=== PATIENT | male | born 1975 | race African-American/Black ===

== ENCOUNTER 2018-05-24 07:19 | Inpatient (IN) ==
--- NOTE | 2018-05-24 08:04 | EKG Report ---
Test Performed on : 05/24/2018 07:35:05 AM Test Reason : ER Blood Pressure : / mmHG Vent. Rate : 114 BPM Atrial Rate : 114 BPM P-R Int : 140 ms QRS Dur : 090 ms QT Int : 298 ms P-R-T Axes : 079 059 027 degrees QTc Int : 410 ms Sinus tachycardia. Possible Left atrial enlargement Left ventricular hypertrophy Abnormal ECG No previous ECGs available Unconfirmed Result
[2018-05-24 08:26] LABS: BASO# 0.01 X1000 (0.0-0.2); BASO% 0.2 % (0.0-0.8); EOS# 0.02 X1000 (0.0-0.7); EOS% 0.4 % (0.0-10.0); HEMATOCRIT 37.7 % (42.0-52.0); IMM GRAN# 0.02 X1000 (0.0-0.04); IMM GRAN% 0.4 % (0.0-0.5); LYMPH# 0.48 X1000 (1.2-3.4); LYMPH% 8.8 % (20.5-51.1); MCH 30.9 PG (27-31); MCHC 34.5 g/dL (33-37); MCV 89.5 FL (81-99); MONO# 0.06 X1000 (0.11-0.59); MONO% 1.1 % (1.7-9.3); MPV 9.1 FL (7.4-10.4); NEUT# 4.85 X1000 (1.4-6.5); NEUT% 89.1 % (42.2-75.2); PLT 159 X1000 (130-400); RBC 4.21 XMIL (4.7-6.1); RDW 12.9 % (11.5-14.5); WBC 5.44 X1000 (4.8-10.8)
--- NOTE | 2018-05-24 08:26 | Diag Imaging Result Doc PS360 ---
EXAM: CHEST-PORTABLE HISTORY: syncopal episode TECHNIQUE: Chest single view COMPARISON: None. FINDINGS: The lungs are well expanded. The heart is not enlarged. The vessels are not distended. There are no infiltrates. No effusion identified. IMPRESSION: Negative exam. Electronically signed by Amilcar Sims 05/24/2018 8:24 AM
[2018-05-24 08:41] LABS: ALBUMIN 3.8 g/dL (3.5-5.0); CALCIUM 8.7 mg/dL (8.8-10.2); CREATININE 2.1 mg/dL (0.7-1.2); POTASSIUM 3.2 mmol/L (3.5-5.1); TOTAL BILIRUBIN 1.6 mg/dL (0.20-1.00); TOTAL PROTEIN 7.2 g/dL (6.3-8.3)
[2018-05-24] MEDS ORDERED: NS 1,000 ML IV ONE ×3 (08:42→15:10)
--- NOTE | 2018-05-24 08:49 | PROVIDER DOCUMENTATION ---
HPI-Syncope/Dizziness - General Chief Complaint: Syncope Stated Complaint: SYNCOPE Time Seen by Provider: 05/24/18 08:32 Source: patient, family Allergies/Adverse Reactions: Patient Allergies Allergy/AdvReac Type Severity Reaction Status Date / Time No Known Allergies Allergy Verified 05/24/18 08:17 Home Medications: Home Medication List Medication Instructions Recorded Confirmed Last Taken Type Amlodipine Besylate 01/04/18 Unknown History Cyclobenzaprine [Flexeril] 10 mg PO TID #20 tab 01/04/18 Unknown Rx Ibuprofen [Motrin] 800 mg PO Q8H PRN PRN #20 tab 01/04/18 Unknown Rx Losartan/Hctz [Hyzaar 100/12.5 mg 1 each PO DAILY 01/04/18 01/04/18 Unknown History Tab] - History of Present Illness-Syncope/Dizzy Nature of Presenting Problem: HX LARGELY GIVEN BY PT'S MOTHER. PT IS ABLE TO SPEEK BUT MAINLY QUIET. mOM TELLS ME PT FELL IN HIS BEDROOM, WAS DIZZYBUT NO LOC. NO DRUG OR ALCOHOL PER MOTHER, PT DOESNT ANSWER THAT QUESTION. DENIES PAIN , DENIES SOB. TX FOR HTN. DENIES COUGH OR FLU SXS. Recently Seen Here or By Another Healthcare Provider: No Review of Systems - Adult - REVIEW OF SYSTEMS - ADULT Constitutional: reports: no symptoms reported. denies: chills, fever, night sweats Eyes: reports: no symptoms reported. denies: discharge Ears, Nose, Mouth & Throat: reports: no symptoms reported Cardiovascular: reports: no symptoms reported. denies: chest pain Respiratory: reports: no symptoms reported. denies: cough, shortness of breath Gastrointestinal: reports: no symptoms reported. denies: abdominal pain Genitourinary: reports: no symptoms reported Musculoskeletal: reports: no symptoms reported Integumentary: reports: no symptoms reported Neurological: reports: no symptoms reported, dizziness/vertigo. denies: syncope Psychiatric: reports: no symptoms reported Endocrine: reports: no symptoms reported Hematologic/Lymphatic: reports: no symptoms reported Allergic/Immunologic: reports: no symptoms reported All Other Systems: Reviewed and Negative Past History - Adult - PAST MEDICAL HISTORY-ADULT Review of Records: reports: Old Records Reviewed, Nursing Assessment Review, Medications Reviewed, Social history reviewed & non-contributory. Major Childhood Illnesses: reports: denies history Cardiovascular: reports: denies history, HTN Respiratory: reports: denies history Gastrointestinal: reports: denies history Obstetrical/Gynecological: reports: denies history Genitourinary: reports: denies history Musculoskeletal: reports: denies history Neurological: reports: denies history Psychiatric: reports: denies history Endocrine/Immune: reports: denies history Other Conditions: reports: denies history - PRIOR SURGERIES/PROCEDURES Surgical/Procedure History: reports: none - FAMILY HISTORY Family History: reviewed, not pertinent Physical Exam-General - PHYSICAL EXAM-ADULT Initial Vital Signs Reviewed: Yes (TACHY, LOW BP) - CONSTITUTIONAL General Appearance: no apparent distress, other (AWAKE, POORLY RESPONSIVE TO VERBAL) - EYES Eyes: pink conjunctivae - HEAD, EARS, NOSE, MOUTH & THROAT HENMT: moist mucous membranes - NECK Neck: full range of motion, supple - RESPIRATORY Respiratory: lungs clear, normal breath sounds, no respiratory distress, no accessory muscle use. negative: rales, stridor, wheezing, retractions - CARDIOVASCULAR Cardiovascular: regular rate, rhythm, no edema, no gallop, no JVD, no murmur, tachycardia - GASTROINTESTINAL (ABDOMEN) Abdominal Exam: non tender, soft - MUSCULOSKELETAL Extremity: normal range of motion - SKIN Integumentary: normal color, normal turgor, warm/dry - NEUROLOGIC Neurologic: school psychologist II-XII nml as tested, grossly normal, no motor/sensory deficits - PSYCHIATRIC Psych/Mental Status: oriented x 3, depressed affect Progress - PLAN OF CARE/RESULTS Progress/Plan/Lab Results: Vital Signs - 8 hr 05/24/18 07:40 05/24/18 07:45 05/24/18 08:00 Temperature 100.9 F H Pulse Rate 115 H 113 H 112 H Respiratory Rate 30 H 31 H 33 H Blood Pressure 113/71 109/70 103/63 O2 Sat by Pulse Oximetry 93 L 93 L 92 L 05/24/18 08:15 Temperature Pulse Rate 114 H Respiratory Rate 30 H Blood Pressure 93/58 O2 Sat by Pulse Oximetry 94 L Laboratory Results - last 24 hr 05/24/18 05/24/18 05/24/18 08:04 08:04 08:04 WBC 5.44 RBC 4.21 L Hgb 13.0 L Hct 37.7 L MCV 89.5 MCH 30.9 MCHC 34.5 RDW Std Deviation 12.9 Plt Count 159 MPV 9.1 Immature Gran % (Auto) 0.4 Neut % (Auto) 89.1 H Lymph % (Auto) 8.8 L Andrews % (Auto) 1.1 L Eos % (Auto) 0.4 Baso % (Auto) 0.2 Immature Gran # (Auto) 0.02 Neut # (Auto) 4.85 Lymph # (Auto) 0.48 L Andrews # (Auto) 0.06 L Eos # (Auto) 0.02 Baso # (Auto) 0.01 Segmented Neutrophils 85 H Band Neutrophils 2 H Lymphocytes 11 L Monocytes 2 PT 18.6 H INR 1.47 PTT (Actin FS) 35.2 Sodium 140 Potassium 3.2 L Chloride 102 Carbon Dioxide 23 L Anion Gap 15 BUN 23 H Creatinine 2.1 H Estimated GFR/1.73 m2 35 BUN/Creatinine Ratio 11 Glucose 109 H POC Glucose Calculated Osmolality 284 Calcium 8.7 L Total Bilirubin 1.60 H AST 31 ALT 21 Alkaline Phosphatase 117 Creatine Kinase 276 H Creatine Kinase Index 0.4 CK-MB (CK-2) 1.00 Troponin T Total Protein 7.2 Albumin 3.8 Globulin 3.0 Albumin/Globulin Ratio 1.0 Plasma Lactate Urine Source Urine Color Urine Clarity Urine pH Ur Specific [place] Urine Protein Urine Ketones Urine Blood Urine Nitrite Urine Bilirubin Urine Urobilinogen Urine Microscopic RBC Urine WBC Urine Microscopic WBC Urine Bacteria Urine Glucose Urine Opiates Screen Ur Oxycodone Screen Urine Methadone Screen U Propoxyphene Qual Ur Barbituates Screen Ur Tricyclics Screen Ur Phencyclidine Scrn Ur Amphetamines Screen U Methamphetamines Scrn U Benzodiazepines Scrn Urine Cocaine Screen U Cannabinoids Screen Plasma/Serum Ethyl Alc Influenza A (Rapid) Influenza B (Rapid) 05/24/18 05/24/18 05/24/18 08:04 08:04 08:04 WBC RBC Hgb Hct MCV MCH MCHC RDW Std Deviation Plt Count MPV Immature Gran % (Auto) Neut % (Auto) Lymph % (Auto) Andrews % (Auto) Eos % (Auto) Baso % (Auto) Immature Gran # (Auto) Neut # (Auto) Lymph # (Auto) Andrews # (Auto) Eos # (Auto) Baso # (Auto) Segmented Neutrophils Band Neutrophils Lymphocytes Monocytes PT INR PTT (Actin FS) Sodium Potassium Chloride Carbon Dioxide Anion Gap BUN Creatinine Estimated GFR/1.73 m2 BUN/Creatinine Ratio Glucose POC Glucose Calculated Osmolality Calcium Total Bilirubin AST ALT Alkaline Phosphatase Creatine Kinase Creatine Kinase Index CK-MB (CK-2) Troponin T < 0.010 Total Protein Albumin Globulin Albumin/Globulin Ratio Plasma Lactate 3.0 H Urine Source Urine Color Urine Clarity Urine pH Ur Specific [place] Urine Protein Urine Ketones Urine Blood Urine Nitrite Urine Bilirubin Urine Urobilinogen Urine Microscopic RBC Urine WBC Urine Microscopic WBC Urine Bacteria Urine Glucose Urine Opiates Screen Ur Oxycodone Screen Urine Methadone Screen U Propoxyphene Qual Ur Barbituates Screen Ur Tricyclics Screen Ur Phencyclidine Scrn Ur Amphetamines Screen U Methamphetamines Scrn U Benzodiazepines Scrn Urine Cocaine Screen U Cannabinoids Screen Plasma/Serum Ethyl Alc Influenza A (Rapid) Influenza B (Rapid) 05/24/18 05/24/18 05/24/18 08:08 08:26 09:06 WBC RBC Hgb Hct MCV MCH MCHC RDW Std Deviation Plt Count MPV Immature Gran % (Auto) Neut % (Auto) Lymph % (Auto) Andrews % (Auto) Eos % (Auto) Baso % (Auto) Immature Gran # (Auto) Neut # (Auto) Lymph # (Auto) Andrews # (Auto) Eos # (Auto) Baso # (Auto) Segmented Neutrophils Band Neutrophils Lymphocytes Monocytes PT INR PTT (Actin FS) Sodium Potassium Chloride Carbon Dioxide Anion Gap BUN Creatinine Estimated GFR/1.73 m2 BUN/Creatinine Ratio Glucose POC Glucose 116 H Calculated Osmolality Calcium Total Bilirubin AST ALT Alkaline Phosphatase Creatine Kinase Creatine Kinase Index CK-MB (CK-2) Troponin T Total Protein Albumin Globulin Albumin/Globulin Ratio Plasma Lactate Urine Source CATH Urine Color BROWN Urine Clarity VERY CLOUDY A Urine pH 8.0 Ur Specific [place] 1.005 Urine Protein 2+(100 mg/dL) A Urine Ketones 1+(Small) A Urine Blood 4+ Urine Nitrite NEGATIVE Urine Bilirubin NEGATIVE Urine Urobilinogen 8 Urine Microscopic RBC TNTC A Urine WBC 2+ A Urine Microscopic WBC TNTC A Urine Bacteria 4+ Urine Glucose NEGATIVE Urine Opiates Screen Ur Oxycodone Screen Urine Methadone Screen U Propoxyphene Qual Ur Barbituates Screen Ur Tricyclics Screen Ur Phencyclidine Scrn Ur Amphetamines Screen U Methamphetamines Scrn U Benzodiazepines Scrn Urine Cocaine Screen U Cannabinoids Screen Plasma/Serum Ethyl Alc Influenza A (Rapid) NEGATIVE Influenza B (Rapid) NEGATIVE 05/24/18 09:06 WBC RBC Hgb Hct MCV MCH MCHC RDW Std Deviation Plt Count MPV Immature Gran % (Auto) Neut % (Auto) Lymph % (Auto) Andrews % (Auto) Eos % (Auto) Baso % (Auto) Immature Gran # (Auto) Neut # (Auto) Lymph # (Auto) Andrews # (Auto) Eos # (Auto) Baso # (Auto) Segmented Neutrophils Band Neutrophils Lymphocytes Monocytes PT INR PTT (Actin FS) Sodium Potassium Chloride Carbon Dioxide Anion Gap BUN Creatinine Estimated GFR/1.73 m2 BUN/Creatinine Ratio Glucose POC Glucose Calculated Osmolality Calcium Total Bilirubin AST ALT Alkaline Phosphatase Creatine Kinase Creatine Kinase Index CK-MB (CK-2) Troponin T Total Protein Albumin Globulin Albumin/Globulin Ratio Plasma Lactate Urine Source Urine Color Urine Clarity Urine pH Ur Specific [place] Urine Protein Urine Ketones Urine Blood Urine Nitrite Urine Bilirubin Urine Urobilinogen Urine Microscopic RBC Urine WBC Urine Microscopic WBC Urine Bacteria Urine Glucose Urine Opiates Screen NONE DETECTED Ur Oxycodone Screen NONE DETECTED Urine Methadone Screen NONE DETECTED U Propoxyphene Qual NONE DETECTED Ur Barbituates Screen NONE DETECTED Ur Tricyclics Screen NONE DETECTED Ur Phencyclidine Scrn NONE DETECTED Ur Amphetamines Screen NONE DETECTED U Methamphetamines Scrn NONE DETECTED U Benzodiazepines Scrn NONE DETECTED Urine Cocaine Screen NONE DETECTED U Cannabinoids Screen NONE DETECTED Plasma/Serum Ethyl Alc Influenza A (Rapid) Influenza B (Rapid) Orders Category Date Time Status Cardiac Monitoring DIRECTED Care 05/24/18 07:49 Active IV Insertion ORDERED Care 05/24/18 07:49 Completed Notify MD of + Sepsis Screen NOW Care 05/24/18 07:49 Active Notify Physician As Ordered Care 05/24/18 07:49 Active Straight Catheterization ORDERED Care 05/24/18 08:40 Active CHEST-PORTABLE [RAD] Stat Exams 05/24/18 07:49 Completed ALCOHOL BLOOD Stat Lab 05/24/18 08:04 Completed BLOOD CULTURE [BLDCUL] Stat Lab 05/24/18 08:29 Ordered CBC WITH DIFF [HEME] Stat Lab 05/24/18 08:04 Completed CK PROFILE [SP CHEM] Stat Lab 05/24/18 08:04 Completed COMPREHENSIVE METABOLIC PANEL [CHEM] Stat Lab 05/24/18 08:[address] Stat Lab 05/24/18 08:08 Completed LACTATE, PLASMA [CHEM] Lab 05/24/18 11:25 Received LACTATE, PLASMA [CHEM] Lab 05/24/18 14:00 Uncollected LACTATE, PLASMA [CHEM] Q3H Lab 05/24/18 08:04 Completed PROTIME WITH INR [COAG] Stat Lab 05/24/18 08:04 Completed PTT [COAG] Stat Lab 05/24/18 08:04 Completed TROPONIN T Stat Lab 05/24/18 08:[address] W/POSS RFLX CULT [URINALYSIS] Stat Lab 05/24/18 09:06 Completed URINE CULTURE [RM] Routine Lab 05/24/18 09:58 Ordered URINE DRUG SCREEN PL Stat Lab 05/24/18 09:06 Completed 0.9% Sodium Chloride Inj [Ns] 1,000 ml Med 05/24/18 08:42 Discontinued IV 999 mls/hr 0.9% Sodium Chloride Inj [Ns] 1,000 ml Med 05/24/18 10:08 Discontinued IV 999 mls/hr CefTRIAXONE [Rocephin] 1 gm Med 05/24/18 10:08 Discontinued 0.9% Sodium Chloride Inj [Ns] 50 ml IV NOW Ketorolac [Toradol] Med 05/24/18 10:08 Discontinued 15 mg IV NOW ONE Oxygen Device Stat Oth 05/24/18 07:49 Active EKG [EKG] Routine Ther 05/24/18 Draft Result Diagrams: 05/24/18 08:04 05/24/18 08:04 - REASSESSMENT Reassessment #1 Time Reassessed: 10:57 Reassessment Comment: paging hospitalist, UTI,UP K,LACTIC ACIDOSIS, HYPOTENSION , TACHY,RI - EKG 1 Time of EKG reading by physician:: 07:44 EKG Read and Signed by:: Zhang Mercado EKG Interpretation (*Must complete 3 of following elements*): Abnormal Rate: 114 Rhythm: SINUS [place]: normal QRS: normal [place] Interval: normal Comments: SINUS TACHY,LVH - CONSULTS/PCP/HOSPITALIST Notification #1 *Consult/PCP/Hospitalist*: DR CHAMBERLAIN Time Discussed: 11:35 Consult Disposition: Admit Departure - Departure Date of Disposition Decision: 05/24/18 Time of Disposition Decision: 11:35 DIAGNOSIS: UTI (urinary tract infection), Sepsis, Dehydration, Lactic acidosis, Hypokalemia Disposition: ADMITTED INPATIENT 09 Certified Medical Emergency: Emergent Condition: Stable Referrals and Follow-Ups: None,PCP [Primary Care Provider] - - Critical Care Note This patient required my direct & personal management of CC.: No Comments: DID NOT REQUIRE CRITICAL CARE IN ER OF MORE THAN 15 MIN . Attestation - Physician/ RASHEEDA Attestation Patient care was provided by Advanced Practice Provider:: No The physician spent face to face time with patient:: Yes Advanced Practice Provider documentation review:: Supervising physician onsite and consulted in the evaluation and care of this patient. The physician did have a face to face encounter with the patient.
[2018-05-24 08:51] LABS: INR 1.47; PROTIME 18.6 Seconds (11.0-16.0)
[2018-05-24 08:52] LABS: PTT 35.2 Seconds (22.3-41.8)
[2018-05-24 09:17] LABS: BANDS 2 % (0-1); LYMPHS 11 % (21-51); MONO 2 % (1-9); SEGS 85 % (42-75)
[2018-05-24 09:18] LABS: INFLUENZA A NEGATIVE (NEGATIVE); INFLUENZA B NEGATIVE (NEGATIVE)
[2018-05-24 09:36] LABS: CK INDEX 0.4 (0.0-2.5)
[2018-05-24 09:52] LABS: BILIRUBIN URINE NEGATIVE (NEGATIVE); BLOOD URINE 4+ (NEGATIVE); CLARITY VERY CLOUDY (CLEAR); COLOR BROWN; GLUCOSE URINE NEGATIVE (NEGATIVE); KETONE URINE 1+(Small) mg/dL (NEGATIVE); LEUKOCYTES URINE 2+ (NEGATIVE); NITRITE URINE NEGATIVE (NEGATIVE); PROTEIN URINE 2+(100 mg/dL) mg/dL (NEGATIVE); SP GRAVITY URINE 1.005; UROBILINOGEN URINE 8 mg/dL
[2018-05-24 09:57] LABS: URINE RBC TNTC /HPF (<10); URINE WBC TNTC /HPF (<10)
[2018-05-24 09:58] LABS: UR AMPHETAMINES QUAL NONE DETECTED (NONE DETECT); UR BARBITUATES QUAL NONE DETECTED (NONE DETECT); UR BENZODIAZEPIN QUAL NONE DETECTED (NONE DETECT); UR CANNABINOIDS QUAL NONE DETECTED (NONE DETECT); UR COCAINE QUAL NONE DETECTED (NONE DETECT); UR METHADONE QUAL NONE DETECTED (NONE DETECT); UR METHAMPHETAMINE QUAL NONE DETECTED (NONE DETECT); UR OPIATES QUAL NONE DETECTED (NONE DETECT); UR OXYCODONE QUAL NONE DETECTED (NONE DETECT); UR PCP QUAL NONE DETECTED (NONE DETECT); UR PROPOXYPHENE QUAL NONE DETECTED (NONE DETECT); UR TCA QUAL NONE DETECTED (NONE DETECT); URINE BACTERIA 4+ /HFP; URINE SOURCE CATH
[2018-05-24] MEDS ORDERED: TORADOL IV ONE (10:08)
[2018-05-24] MEDS ORDERED: ROCEPHIN 1 GM in NS 50 ML IV ONE (10:08)
[2018-05-24] MEDS ORDERED: TYLENOL PO PRN (15:10)
[2018-05-24] MEDS ORDERED: ZOFRAN IV PRN (15:10)
[2018-05-24] MEDS: LOVENOX SUBQ SCH (16:36)
--- NOTE | 2018-05-24 22:26 | HISTORY AND PHYSICAL ---
CHIEF COMPLAINT: Syncope. HISTORY OF PRESENT ILLNESS: Patient presented to the hospital with fatigue and fever. Generalized achiness. ALLERGIES: No known drug allergies. MEDICATIONS: Amlodipine, Flexeril, Hyzaar. PAST MEDICAL HISTORY: Hypertension. FAMILY HISTORY: Positive for hypertension. SOCIAL HISTORY: Patient does not smoke or drink. PHYSICAL EXAMINATION: VITAL SIGNS: Reviewed. Temperature 100.9, pulse 113, respiratory 31, BP 109/70, saturation 92% on room air. GENERAL: Patient is awake, alert. He is very poorly responsive to verbal questions. Had to be asked 2 or 3 times before patient answers them. HEENT: Normocephalic. NECK: Supple. CARDIOVASCULAR: Regular rate. CHEST: Clear, nonlabored. ABDOMEN: Soft, nondistended. EXTREMITIES: Moves all extremities. No edema. ASSESSMENT: 1. Renal failure. I do not have a chronic lab on him. I assume this is an acute renal failure situation. 2. Volume depletion. 3. Metabolic encephalopathy. 4. Hypokalemia. 5. Sepsis as noted by hypotension, tachycardia, and lactic acid, as well as urinary infection. 6. Urinary tract infection. PLAN: We will continue patient in the hospital. Continue antibiotics. IV fluids. Check urine culture and will follow. cc: Loi Corey MD
[2018-05-25] MEDS ORDERED: XYLOCAINE 2% JELLY UROJECT TOP ONE (05:10)
[2018-05-25] MEDS: NORCO-7.5 PO PRN ×2 (05:28→20:33)
[2018-05-25 06:15] LABS: BILIRUBIN URINE NEGATIVE (NEGATIVE); BLOOD URINE 4+ (NEGATIVE); CLARITY VERY CLOUDY (CLEAR); COLOR BROWN; GLUCOSE URINE NEGATIVE (NEGATIVE); KETONE URINE NEGATIVE (NEGATIVE); LEUKOCYTES URINE 2+ (NEGATIVE); NITRITE URINE POSITIVE (NEGATIVE); PROTEIN URINE 2+(100 mg/dL) mg/dL (NEGATIVE); UROBILINOGEN URINE 8 mg/dL
[2018-05-25 06:26] LABS: URINE BACTERIA 2+ /HFP; URINE EPITHELIAL CELLS <10 /HPF (<10); URINE RBC TNTC /HPF (<10); URINE SOURCE CATH
[2018-05-25 06:36] LABS: HEMATOCRIT 33.2 % (42.0-52.0); HEMOGLOBIN 11.3 g/dL (14.0-18.0); MCH 30.3 PG (27-31); MPV 9.6 FL (7.4-10.4); RBC 3.73 XMIL (4.7-6.1); RDW 13.2 % (11.5-14.5); WBC 19.12 X1000 (4.8-10.8)
[2018-05-25] MEDS ORDERED: ZOFRAN IV PRN (06:39)
[2018-05-25 07:01] LABS: ALBUMIN 3.2 g/dL (3.5-5.0); CALCIUM 7.7 mg/dL (8.8-10.2); CREATININE 1.5 mg/dL (0.7-1.2); MAGNESIUM 1.5 mg/dL (1.5-2.7); POTASSIUM 3.6 mmol/L (3.5-5.1); TOTAL BILIRUBIN 1.1 mg/dL (0.20-1.00); TOTAL PROTEIN 6.9 g/dL (6.3-8.3)
[2018-05-25] MEDS ORDERED: NS 1,000 ML IV ONE (07:55)
[2018-05-25] MEDS: NS 1,000 ML IV SCH ×2 (09:35→20:29)
[2018-05-25] MEDS: ROCEPHIN 1 GM in NS 50 ML IV SCH (10:41)
[2018-05-25] MEDS: LOVENOX SUBQ SCH (13:27)
[2018-05-25] MEDS: FLOMAX PO SCH (20:29)
--- NOTE | 2018-05-26 00:06 | PROGRESS NOTE ---
DATE: 05/25/2018 SUBJECTIVE: The patient is a little bit more verbal today. States he is feeling a little better, but still tired, fatigued. Denies any chest pain or palpitations. PHYSICAL EXAM: Vital signs: T-max 100.9 degrees, Temperature current 97.8, pulse 90, respiratory 20, BP 127/80. General: Patient is awake, alert. He is in no current respiratory distress. HEENT: Normocephalic. Neck: Supple. Cardiovascular: Regular rate. No murmurs. Chest: Clear, nonlabored. Abdomen: Soft, nondistended. Positive bowel sounds. Extremities: Moves all extremities. ASSESSMENT: 1. Acute renal failure. Creatinine is actually improved, down from 2.1, currently at 1.5. His urine, however, is still dark. 2. Volume depletion. 3. Metabolic encephalopathy, appears improving. 4. Hypokalemia, resolved. 5. Sepsis, appears improved. 6. Leukocytosis. White count is actually increased. Feel as though this is more due to mobilization as opposed to an actual worsening, as clinically he is better. He is afebrile. His creatinine is better. PLAN: We will continue Rocephin. Await cultures. We will rebolus him as well as increase his IV fluids. cc: Loi Corey MD
[2018-05-26] MEDS: NS 1,000 ML IV SCH ×2 (06:16→14:59)
[2018-05-26 07:31] LABS: AGAP 11; BUN 15 mg/dL (8-22); CHLORIDE 105 mmol/L (98-107); COSMO 280; CREATININE 0.9 mg/dL (0.7-1.2); ESTIMATED GFR > 60; GLUCOSE 93 mg/dL (70-104); POTASSIUM 3.9 mmol/L (3.5-5.1); SODIUM 140 mmol/L (136-145); TCO2 25 mmol/L (25-35)
[2018-05-26 07:40] LABS: HEMATOCRIT 32.2 % (42.0-52.0); MCH 30.7 PG (27-31); MCHC 34.2 g/dL (33-37); MCV 89.9 FL (81-99); MPV 10.4 FL (7.4-10.4); RBC 3.58 XMIL (4.7-6.1); RDW 13.4 % (11.5-14.5); WBC 10.78 X1000 (4.8-10.8)
[2018-05-26] MEDS ORDERED: NS 1,000 ML IV ONE (08:44)
[2018-05-26] MEDS: ROCEPHIN 1 GM in NS 50 ML IV SCH (10:42)
[2018-05-26] MEDS: LOVENOX SUBQ SCH (14:58)
[2018-05-26] MEDS ORDERED: VANCOMYCIN IV PER PHARMACY MISC SCH (15:15)
[2018-05-26] MEDS: VANCOMYCIN 2,000 MG in NS 500 ML IV SCH (18:34)
[2018-05-26] MEDS: FLOMAX PO SCH (21:07)
--- NOTE | 2018-05-26 22:48 | PROGRESS NOTE ---
DATE: 05/26/2018 SUBJECTIVE: The patient notes that he is feeling a little bit better. He is drinking a little bit better. Denies any fevers or chills. States he is still not really eating. It is quite difficult to get the patient to answer questions. Uncertain if this is his baseline mental status. OBJECTIVE: Temperature 98.5 degrees, pulse 95, respiratory rate 20, BP 135/92. General: The patient is currently in no respiratory distress. He appears to be feeling better than he did on admission. HEENT: Normocephalic. Neck supple. CV: Regular rate. No murmurs. Chest clear, nonlabored. Abdomen soft, nondistended, nontender. Extremities: Moves all extremities. Neurologic: No changes. ASSESSMENT AND PLAN: 1. Leukocytosis, appears resolved. White count has dropped from 19 down to 10. 2. Acute renal failure, appears resolved. Creatinine was 2.1, currently down to 0.3 with a BUN at 15. 3. Hypokalemia, resolved. 4. Volume depletion, improving. His urine is still dark. We will continue intravenous fluids today. 5. Metabolic encephalopathy. Uncertain of the patient's baseline mental status. There is no family around. Currently he appears awake and alert, appears more oriented. Appears to be back to his baseline. 6. Sepsis, still of uncertain etiology. He is currently on Rocephin; however, his hypotension, tachycardia and lactic acidosis has resolved. Urine cultures are currently negative. He did have one odd reading of a gram-positive cocci in his blood culture, 1 of 2. This was actually reported out after the culture was reported negative at 48 hours. We will not start vancomycin currently until we get more delineation of the culture, as his white count has resolved, his symptoms are improving and he just 2 days ago was in acute renal failure. We will continue to follow. cc: Loi Corey MD
[2018-05-27] MEDS: NS 1,000 ML IV SCH ×3 (00:38→13:02)
[2018-05-27] MEDS: VANCOMYCIN 2,000 MG in NS 500 ML IV SCH ×2 (04:04→16:17)
[2018-05-27 07:24] LABS: HEMATOCRIT 31.3 % (42.0-52.0); HEMOGLOBIN 10.9 g/dL (14.0-18.0); MCH 30.8 PG (27-31); MCHC 34.8 g/dL (33-37); MCV 88.4 FL (81-99); RBC 3.54 XMIL (4.7-6.1); RDW 13.1 % (11.5-14.5); WBC 12.59 X1000 (4.8-10.8)
[2018-05-27 07:54] LABS: AGAP 10; BUN 8 mg/dL (8-22); CALCIUM 8.1 mg/dL (8.8-10.2); CHLORIDE 108 mmol/L (98-107); COSMO 282; CREATININE 0.9 mg/dL (0.7-1.2); ESTIMATED GFR > 60; GLUCOSE 113 mg/dL (70-104); POTASSIUM 3.6 mmol/L (3.5-5.1); SODIUM 142 mmol/L (136-145); TCO2 24 mmol/L (25-35)
[2018-05-27] MEDS: ROCEPHIN 1 GM in NS 50 ML IV SCH (09:12)
[2018-05-27] MEDS: LOVENOX SUBQ SCH (14:28)
[2018-05-27] MEDS: FLONASE NAS SCH ×2 (14:28→20:51)
[2018-05-27] MEDS: TYLENOL PO PRN (16:17)
[2018-05-27] MEDS: FLOMAX PO SCH (20:52)
--- NOTE | 2018-05-28 00:28 | PROGRESS NOTE ---
DATE: 05/27/2018 SUBJECTIVE: Patient notes he is doing much better. He is starting to eat better. He is drinking better. Notes that his muscle aches are better. Still having a headache, but denies any fevers or chills currently. PHYSICAL EXAMINATION: Vital Signs: Temperature 98.5 degrees, pulse 97, respiratory 22, BP 135/92. General: Patient is awake. He is in no distress. HEENT: Normocephalic. Neck: Supple. Cardiovascular: Regular rate. No murmurs. Chest: Clear and unlabored. No wheezing. Abdomen: Soft, nondistended, nontender. Extremities: Moves all extremities. Neurologic: No changes. ASSESSMENT: 1. Renal failure, appears resolved. Creatinine is down to 0.9. BUN is down to 15. 2. Leukocytosis, resolved. 3. Hypokalemia, improved. 4. Metabolic encephalopathy, appears resolved. 5. Sepsis, appears improved although patient did have a fever this afternoon. 6. Abnormal blood culture. The patient's blood culture results are somewhat quite confusing. He currently reads no growth, final, 48 hours. However, 2 hours prior to the no growth reading he has a Gram stain that has returned positive for gram-positive cocci. I attempted to call the lab to clarify this although they are unsure as to the cause and stated they would look into it. Since patient has had a fever this afternoon, we will start vancomycin until the final blood culture can be ascertained. Overall, patient has improved. His urine has cleared up. His mental status has cleared up. cc: Loi Corey MD
[2018-05-28] MEDS: NS 1,000 ML IV SCH ×3 (00:39→21:21)
[2018-05-28] MEDS: TYLENOL PO PRN ×3 (03:28→23:22)
[2018-05-28] MEDS: VANCOMYCIN 2,000 MG in NS 500 ML IV SCH ×2 (03:29→16:21)
[2018-05-28 06:40] LABS: HEMATOCRIT 31.1 % (42.0-52.0); HEMOGLOBIN 10.6 g/dL (14.0-18.0); MCH 30.2 PG (27-31); MCHC 34.1 g/dL (33-37); MCV 88.6 FL (81-99); MPV 9.7 FL (7.4-10.4); RBC 3.51 XMIL (4.7-6.1); WBC 13.44 X1000 (4.8-10.8)
[2018-05-28 07:00] LABS: AGAP 9; BUN 8 mg/dL (8-22); CALCIUM 8.3 mg/dL (8.8-10.2); CHLORIDE 107 mmol/L (98-107); COSMO 278; CREATININE 0.9 mg/dL (0.7-1.2); ESTIMATED GFR > 60; GLUCOSE 108 mg/dL (70-104); POTASSIUM 3.7 mmol/L (3.5-5.1); SODIUM 140 mmol/L (136-145); TCO2 24 mmol/L (25-35)
[2018-05-28] MEDS: ROCEPHIN 1 GM in NS 50 ML IV SCH (10:16)
[2018-05-28] MEDS: FLONASE NAS SCH ×2 (10:16→21:21)
[2018-05-28] MEDS: LOVENOX SUBQ SCH (13:45)
[2018-05-28] MEDS: FLOMAX PO SCH (21:20)
--- NOTE | 2018-05-29 00:53 | PROGRESS NOTE ---
DATE: 05/28/2018 SUBJECTIVE: The patient notes that overall he is feeling better. He is eating better. He is drinking better. Still having a headache but that is improved. Did have a fever yesterday. PHYSICAL EXAMINATION: Vital Signs: T max 102.1 degrees, T current 99.4 degrees, pulse 73, respiratory 18, BP 136/91. General: Patient is awake, alert, currently in no respiratory distress. HEENT: Normocephalic. Neck: Supple. Cardiovascular: Regular rate. No murmurs. Chest: Clear and unlabored. Abdomen: Soft. Extremities: Moves all extremities. Neurologic: No focal changes. ASSESSMENT: 1. Acute renal failure, resolved. Creatinine is back to his baseline. 2. Leukocytosis, resolved. 3. Volume depletion, resolved. 4. Metabolic encephalopathy, resolved. 5. Hypokalemia, resolved. 6. Sepsis. Patient currently is growing gram-positive cocci. We have started him on vancomycin and await final culture. cc: Loi Corey MD
[2018-05-29] MEDS: NS 1,000 ML IV SCH ×3 (02:50→22:00)
[2018-05-29] MEDS: VANCOMYCIN 2,000 MG in NS 500 ML IV SCH (04:01)
[2018-05-29 06:08] LABS: HEMATOCRIT 32.3 % (42.0-52.0); MCH 30.1 PG (27-31); MCHC 34.1 g/dL (33-37); MCV 88.5 FL (81-99); MPV 9.3 FL (7.4-10.4); RBC 3.65 XMIL (4.7-6.1); WBC 11.71 X1000 (4.8-10.8)
[2018-05-29 06:26] LABS: AGAP 11; BUN 9 mg/dL (8-22); CALCIUM 8.3 mg/dL (8.8-10.2); CHLORIDE 106 mmol/L (98-107); COSMO 279; ESTIMATED GFR > 60; GLUCOSE 111 mg/dL (70-104); POTASSIUM 3.4 mmol/L (3.5-5.1); SODIUM 140 mmol/L (136-145); TCO2 23 mmol/L (25-35)
[2018-05-29] MEDS: TYLENOL PO PRN ×2 (08:31→15:27)
[2018-05-29] MEDS: FLONASE NAS SCH ×2 (08:31→22:01)
[2018-05-29] MEDS ORDERED: INVANZ 1 GM/NS 1 GM/50 ML IVPB IV SCH (12:00)
[2018-05-29] MEDS: LOVENOX SUBQ SCH (14:07)
--- NOTE | 2018-05-29 17:26 | PROGRESS NOTE ---
DATE: 05/29/2018 CONTINUATION: PHYSICAL: Vital Signs: Reviewed. Temperature 101.3 T-max, T current 100.1, pulse 71, respiratory 18, BP 152/82. General: Patient is awake, currently in no respiratory distress, pleasant to talk with. HEENT: Normocephalic. Neck: Supple. CV: Regular rate. Chest: Clear, nonlabored. Abdomen: Soft, nondistended, nontender. Extremities: Moves all extremities. Neuro: No changes. ASSESSMENT: 1. Peptostreptococcus bacteremia . 2. Sepsis secondary to #1 resolved. 3. Headache resolved. 4. Continued febrile illness. 5. Volume depletion resolved. 6. Acute renal failure resolved . 7. Leukocytosis resolved. PLAN: Overall patient is better, still having fever however so therefore we will change his antibiotics at add ertapenem and will follow. cc: Loi Corey MD
[2018-05-29] MEDS: ROCEPHIN 1 GM in NS 50 ML IV SCH (20:11)
[2018-05-29] MEDS: FLOMAX PO SCH (22:00)
[2018-05-30] MEDS: TYLENOL PO PRN ×3 (08:29→20:46)
[2018-05-30] MEDS: NS 1,000 ML IV SCH ×2 (08:29→18:47)
[2018-05-30] MEDS: FLONASE NAS SCH ×2 (08:29→20:52)
[2018-05-30] MEDS ORDERED: ZOSYN 3.375 GM in NS 50 ML IV SCH (12:30)
--- NOTE | 2018-05-30 15:19 | INFECTIOUS DISEASE CONSULT REP ---
DATE: 05/30/2018 CONCLUSION: The patient has a bacteremia with Peptostreptococcus. I think this originates from his penis where apparently there was difficulty inserting a Mcdonald catheter and as a result, the penis swelled and appeared to be infected. The patient may be developing Clostridium difficile diarrhea. RECOMMENDATIONS: I have discontinued Zosyn and have put the patient on ampicillin 2 g IV every 6 hours. I am going to order a stool for Clostridium difficile antigen and toxin. DISCUSSION: The patient tells me that he was admitted in the hospital. He passed out, so he does not remember anything that happened. When he did wake up, he had among other things dysuria and a feeling of being cold all the time. The urine analysis showed white blood cells and bacteria. Urine culture was negative. Blood cultures grew Peptostreptococcus. Chest x- ray is clear. Creatinine is 1.0. GFR is greater than 60. CBC shows a white count of 11,710, hemoglobin 11 and platelet count 240,000. The patient told me that he had two loose stools yesterday and one loose stool today. PAST MEDICAL HISTORY/REVIEW OF SYSTEMS: Eyes and Ears: He does not have any problems seeing or hearing. Respiratory: No cough or shortness of breath. Cardiac: No chest pain or palpitations. Gastrointestinal: See present illness. Genitourinary: See present illness. Bones/Joints/Muscles: No joint swelling or muscle aching. Endocrine: Patient does not have diabetes or thyroid disease. Neurologic: The patient does not have seizures. He said he did pass out when he came to the hospital. He has not had any loss of motor or sensory function recently. PREVIOUS HOSPITALIZATIONS AND OPERATIONS: None. MEDICAL DISEASES: Positive for hypertension.Infectious Disease History: Negative for pneumonia and UTI. FAMILY HISTORY: Positive for hypertension and myocardial infarction. SOCIAL HISTORY: [place] He smokes cigarettes. He does not drink alcoholic beverages or abuse drugs. He is single. He lives with his mother. He works at a car dealership. PHYSICAL EXAMINATION: Vital Signs: Temperature is 99.6, pulse 72, respirations 18, blood pressure 148/87. The patient weighs 193 pounds. General: This is an obese, but otherwise healthy appearing young male. He is in no acute distress. Head, Eyes, Ears, Nose and Throat: He can hear my spoken words and see near objects. He does not have any white coating on his tongue. Neck: No meningismus. Lungs: Clear to auscultation. Cardiovascular: Heart rate is regular. Abdomen: Soft and nontender. Genitalia: The patient's penis and scrotum were enlarged. Neurologic: The patient is awake. He can move his extremities. There is no tremor. His sensation was intact to touch. His memory as regarding his medical history was good. Integument: No rash noted. Thank you for the consult. cc: Mauricio Terry MD MTDD
[2018-05-30] MEDS: AMPICILLIN 2 GM/NS 2 GM/100 ML IVPB IV SCH ×2 (15:29→20:46)
--- NOTE | 2018-05-30 17:44 | PROGRESS NOTE ---
DATE: 05/30/2018 SUBJECTIVE: The patient notes that he is feeling okay, he has had no further syncope. States he does have penile swelling occurred sometime after a Mcdonald catheter was placed. Denies any dysuria, denies any burning pain or bleeding when he urinates. Denies any pain unless he is standing upright. PHYSICAL: T current 98.8, T max 100.8, pulse 88, respiratory 20, BP 133/78.General: Patient is very pleasant to talk with, he is alert, oriented, he is in no current respiratory distress. HEENT: Normocephalic. Neck: Supple. CV: Regular rate, no murmurs. Chest: Clear nonlabored. Abdomen: Soft, nondistended, nontender. Extremities: Moves all extremities. Neuro: No changes. He is awake, alert, oriented. ASSESSMENT: 1. Acute renal failure resolved, creatinine was 2.1 on admit currently is 0.9. 2. Volume depletion resolved. 3. Metabolic encephalopathy resolved. 4. Penile swelling. 5. Peptostreptococcus. PLAN: Will continue patient in the hospital, we changed him to ertapenem from Rocephin as he started having fever. His fever seems to be trending down over the past 2 days, therefore we will continue ertapenem. cc: Loi Corey MD
[2018-05-30] MEDS: NORCO-7.5 PO PRN (18:05)
--- NOTE | 2018-05-30 18:28 | CONSULTATION ---
DATE OF CONSULTATION: 05/30/2018 CHIEF COMPLAINT: Penile swelling and pain. HISTORY OF PRESENT ILLNESS: Mr. Pereira is a 42-year-old with a history of hypertension and myocardial infarction, who presents in consultation regarding penile swelling and pain. The patient was admitted to the hospital on 05/24/2018 after he had loss of consciousness at home. The patient was brought to the ED where he was found to have confusion as well as fatigue and a generalized sensation of achiness. The patient was found to have acute kidney injury with a creatinine elevated at 2.1 with an elevated PVR. A catheter was attempted and it sounds like this was able to be placed, but since then the patient has had some hematuria when he urinates as well as had significant penile swelling. He states that prior to all this he did not have any penile swelling, but since then he has had significant penile swelling as well as scrotal swelling. He has some tenderness to palpation and pain both in his penis and his scrotum. The patient denies any prior episodes of penile swelling previously. He denies straining to urinate, but states that when he urinates, he does have some dysuria. Prior to all this, patient does state that he had some urgency and frequency to urinate at home for many months, that was most prominent at night. The patient denies family history of prostate cancer or kidney stones. The patient denies any other episodes of hematuria prior to this presentation. Patient denies history of STIs or recent sexual activity. ALLERGIES: No known drug allergies. MEDICATIONS: 1. Amlodipine. 2. Flexeril. 3. Hyzaar. PAST MEDICAL HISTORY: Hypertension. PAST SURGICAL HISTORY: He denies any procedures. FAMILY HISTORY: Denies family history of malignancy or kidney stones. SOCIAL HISTORY: Denies tobacco or illicit drug use or alcohol use. PHYSICAL EXAMINATION: Vital signs: Temperature 99.6, heart rate 72, blood pressure 148/87, oxygen saturation 100% on room air. General: Mild distress. He is alert and oriented x3. HEENT: Normocephalic, atraumatic. Pupils equal, round, reactive to light. Mucous membranes moist. Respiratory: Good respiratory effort without audible wheezing or rales. Cardiovascular: S1, S2 heart sounds. No evidence of tachycardia. No evidence of lower extremity edema. Abdomen: Soft, nontender, nondistended. No palpable mass or hepatosplenomegaly. exam: Moderate penile edema the entirety of the penile shaft. No palpable crepitus, erythema, or warmth was palpated. No changes to the penile skin. Bilateral scrotum is also edematous with no evidence of any crepitus, warmth, or erythema. There is a slight appearance of pitting within the scrotum. No palpable scrotal masses are felt and testicles are nontender to palpation. Rectal: Digital rectal exam shows a 20 g prostate which is nontender to palpation. No palpable nodules. No palpable rectal masses. No boggy appearance of the prostate itself. Extremities: Moving all extremities without issue. Neurologic: Gross motor and sensory intact. SKIN: No obvious skin rashes or lesions. LABS: White blood cell count 11.7, hemoglobin 11.0, hematocrit 32.3, platelets 240,000. Sodium 140, potassium 3.4, chloride 106, bicarb 23, BUN 9, creatinine 1.0, glucose 111. Blood culture is growing Peptostreptococcus micros. Urine culture without growth x2. ASSESSMENT AND PLAN: Mr. Pereira is a 42-year-old with history of hypertension and myocardial infarction, who presents in consultation regarding penile and scrotal swelling and hematuria. The patient describes being able to void mostly pink urine and denies any straining to urinate, but does have some burning when he urinates. I performed a bladder scan today and only 200 was seen in his bladder. The patient did not feel like he needed to void. The patient had an indwelling catheter in several days ago which drained good urine at that time but this was subsequently removed due to penile swelling. Difficult to assess whether there was difficulty with the catheter placement versus did he just have some swelling of the penis afterwards. The patient is circumcised and does have a moderate amount of swelling of the penile shaft with no palpable crepitus, erythema, or warmth. The patient also has some scrotal swelling with similar appearance. This almost appears to be dependent in origin and low concern for infection related to the scrotum as there just appears to be isolated edema without erythema, warmth, crepitus, or skin changes. The patient does have a positive blood culture showing Peptostreptococcus micros. His white blood cell count seems to be downtrending. His creatinine has stabilized to 1. I do think it is reasonable to obtain a scrotal ultrasound to assess for any underlying scrotal pathologies due to scrotal swelling. His penile swelling appears to be more related to dependent edema. The patient has been taking some blood pressure medications but denies taking lisinopril in the past. I have seen several people who have had lisinopril related penile scrotal swelling similar to angioedema. However, I do not think that is what is going on for him. The patient has been afebrile since being transferred, but has had some intermittent fevers while admitted. In looking at his chart, it looks like he spikes fevers almost daily between 2 and 3 o'clock for the past 4 to 5 days. Uncertain of the etiology of this but the patient has been seen by Dr. Terry of Infectious Disease for workup of infectious etiologies. From his scrotal and penile exam today, I do not think that this is the cause of his infection, but we will continue to monitor. Educated patient on scrotal elevation today. Patient had low albumin on presentation. Please call with questions or concerns. cc: Neville Santizo MD MTDD
--- NOTE | 2018-05-30 19:03 | Diag Imaging Result Doc PS360 ---
EXAM: US SCROTUM - 05/30/2018 HISTORY: Scrotal and Penile swelling after catheterization TECHNIQUE: Ultrasound scrotum COMPARISON: None. FINDINGS: The right testicle measures 4.2 x 3.4 x 3.2 cm in size. The left testicle measures 4.6 x 3.4 x 3.1 cm in size. The bilateral testicles demonstrate homogeneous echotexture. The bilateral testicles demonstrate blood flow signal Doppler images. The right epididymis appears enlarged, with increased blood flow signal on Doppler images. This is suspicious for epididymitis. IMPRESSION: Apparent epididymitis on the right. No evidence of torsion. Electronically signed by Mathew Clements 05/30/2018 7:01 PM
[2018-05-30] MEDS: FLOMAX PO SCH (20:48)
[2018-05-30] MEDS ORDERED: DILAUDID IV ONE (23:20)
[2018-05-31] MEDS: AMPICILLIN 2 GM/NS 2 GM/100 ML IVPB IV SCH ×2 (02:55→10:06)
[2018-05-31] MEDS: NS 1,000 ML IV SCH (03:01)
[2018-05-31 06:58] LABS: AGAP 10; BUN 10 mg/dL (8-22); CALCIUM 8.1 mg/dL (8.8-10.2); CHLORIDE 107 mmol/L (98-107); COSMO 280; CREATININE 0.9 mg/dL (0.7-1.2); ESTIMATED GFR > 60; GLUCOSE 92 mg/dL (70-104); POTASSIUM 3.5 mmol/L (3.5-5.1); SODIUM 141 mmol/L (136-145); TCO2 24 mmol/L (25-35)
[2018-05-31 07:25] LABS: BASO# 0.04 X1000 (0.0-0.2); BASO% 0.2 % (0.0-0.8); EOS# 0.15 X1000 (0.0-0.7); EOS% 0.8 % (0.0-10.0); HEMATOCRIT 32.1 % (42.0-52.0); HEMOGLOBIN 10.9 g/dL (14.0-18.0); IMM GRAN# 0.13 X1000 (0.0-0.04); IMM GRAN% 0.7 % (0.0-0.5); LYMPH# 1.94 X1000 (1.2-3.4); LYMPH% 10.1 % (20.5-51.1); MCH 30.9 PG (27-31); MCV 90.9 FL (81-99); MONO# 1.22 X1000 (0.11-0.59); MONO% 6.3 % (1.7-9.3); NEUT# 15.78 X1000 (1.4-6.5); NEUT% 81.9 % (42.2-75.2); PLT 337 X1000 (130-400); RBC 3.53 XMIL (4.7-6.1); RDW 13.2 % (11.5-14.5); WBC 19.26 X1000 (4.8-10.8)
--- NOTE | 2018-05-31 07:30 | PROGRESS NOTE ---
DATE: 05/31/2018 SUBJECTIVE: No acute events overnight. The patient did have some temperatures yesterday afternoon and has been afebrile since then. Temperature was up to 102 yesterday. The patient denies feeling that he was febrile. The patient has urinated multiple times since being transferred to [facility]. His urine is clearing up. He denies any pain with urination, but does have some burning after he voids. The patient states that his scrotal swelling seems improved. His penile swelling seems to be unchanged. Denies any scrotal discomfort and had pain medication changes last night which have helped with the symptoms. OBJECTIVE: Vital signs: Temperature 98.5 degrees, heart rate 80, blood pressure 147/82, oxygen saturation 97% on room air. General: No acute distress. Resting comfortably in bed. Respiratory: Good respiratory effort without audible wheezing or rales. Cardiovascular: No evidence of tachycardia or lower extremity edema. Abdomen: Soft, nontender, nondistended. : No suprapubic tenderness or distention. The patient's penile swelling appears to be stable. There is edema present. No evidence of any crepitus, erythema or warmth. His scrotum is slightly smaller today. Continues to be slightly tender to palpation. The scrotal edema has decreased with no evidence of erythema, crepitus or skin lesions. IMAGING DATA: Scrotal ultrasound performed yesterday, which showed no evidence of hydroceles with good Doppler flow to both testicles. The patient did have a slightly enlarged right epididymis with increased blood supply, which could be a sign of epididymitis. ASSESSMENT AND PLAN: Mr. Pereira is a 42-year-old with history of hypertension who presents in consultation regarding penile swelling and edema as well as scrotal swelling. The patient describes having a catheter put in and then developing scrotal and penile edema afterwards. Uncertain if this led to his current symptoms of swelling, although they appeared to be related. The patient has no evidence of infection on exam today. No crepitus, erythema, or warmth. His penile edema appears to be stable. I think this is either related to dependent edema or lymphedema. The patient's blood culture on presentation had grown Peptostreptococcus micros. However, his urine cultures and other blood cultures have all been negative. Uncertain the etiology of this positive culture could be contaminant versus pathologic. The patient has been seen by Infectious Disease. The patient has sporadic fevers most commonly in the afternoon. Due to his penile and scrotal edema will plan to obtain a CT Abdomen/Pelvis today to assess for etiologies of edema. From the appearance of his scrotum and the penis, it is unlikely that these are the sites of the infection, but concerned that he may have a urethral pathology leading to his symptoms. We will continue to monitor. Please call with questions or concerns. cc: Nveille Santizo MD MTDD
[2018-05-31] MEDS: NORCO-7.5 PO PRN (07:41)
[2018-05-31 07:50] LABS: BANDS 4 % (0-1); LYMPHS 14 % (21-51); MONO 4 % (1-9); SEGS 76 % (42-75)
--- NOTE | 2018-05-31 08:22 | PROGRESS NOTE ---
DATE: 05/29/2018 DELETE cc: Loi Corey MD MTDD
[2018-05-31] MEDS ORDERED: PYRIDIUM PO PRN (08:53)
[2018-05-31] MEDS ORDERED: PERCOCET-5 PO PRN (08:54)
--- NOTE | 2018-05-31 09:02 | Diag Imaging Result Doc PS360 ---
EXAM: CT ABDOMEN/PELVIS W/WO CONTRAS INDICATION: Evaluation of etiology of penile edema. TECHNIQUE: This exam was performed using automated exposure control, adjustment of mA or kV according to patient size, and/or use of iterative reconstruction technique. COMPARISON: None. FINDINGS: There is trace pleural fluid on the right. There is bibasilar mild subsegmental atelectasis. The liver, gallbladder, spleen, pancreas, adrenal glands, kidneys, and urinary bladder are unremarkable. There is a complex fluid collection with enhancement at its periphery in the urogenital triangle at the base of the penis. The collection measures approximately 5.0 x 3.6 cm axially. The collection is at midline in the region of the penile bulb. There is fluid that extends from the collection along the corpus spongiosum into the penis. Abscess should be considered given the complex architectural and enhancement around the fluid. There is also generalized soft tissue edema associated with the scrotum and penis. There is a small amount of fluid in the right inguinal canal. There are shotty inguinal lymph nodes that are probably reactive. There is abundant stool in the rectum, which could represent a small rectal fecal impaction. The remainder of the GI tract is grossly unremarkable. IMPRESSION: 1.Complex fluid collection with peripheral enhancement in the urogenital triangle around the bulb of the penis that extends into the corpus spongiosum as described. Abscess cannot be excluded. 2.Trace right pleural effusion and mild body wall anasarca. 3.Possible small rectal fecal impaction. Electronically signed by Wilfredo Conklin 05/31/2018 9:00 AM
[2018-05-31] MEDS ORDERED: ZOFRAN IV PRN (09:52)
[2018-05-31] MEDS ORDERED: TYLENOL PO PRN (09:52)
[2018-05-31] MEDS ORDERED: DULCOLAX PR PRN (10:53)
[2018-05-31] MEDS ORDERED: VANCOMYCIN IV PER PHARMACY MISC SCH (12:15)
[2018-05-31] MEDS: DILAUDID IV PRN ×2 (12:29→15:10)
[2018-05-31] MEDS: ZOSYN 3.375 GM in NS 50 ML IV SCH ×2 (12:29→20:49)
--- NOTE | 2018-05-31 13:31 | ECHO REPORT ---
ORDER DATE: 05/30/2018 TEST: Echocardiogram. MEASUREMENTS: 1. Left ventricular end-diastolic diameter 5.1, end-systolic murmur 2.8, septal thickness 1, aortic root 3.5, left atrium 3. SUMMARY: 1. Adequate quality study. 2. Aortic valve is trileaflet and opens normally on 2-dimensional images. Peak gradient across the aortic valve is 10 mmHg. Mitral, tricuspid, and pulmonic valves are without evidence of structural abnormality with very mild mitral regurgitation, mild tricuspid regurgitation, and mild pulmonic insufficiency. Estimated systolic PA pressure by Doppler is 55 mmHg suggesting moderate pulmonary hypertension. The aortic root is normal in size. 3. Normal left ventricular dimensions demonstrated. Estimated left ventricular ejection fraction appears to be at least 70%. No regional wall motion abnormalities are evident. Left atrium, right atrium, right ventricle are normal in size with grossly preserved right ventricular systolic performance. 4. No pericardial effusion. 5. Appearance of inferior vena cava suggests normal central venous pressure. cc: MD Андрей Caballero CRNP
[2018-05-31] MEDS: VANCOMYCIN 2,000 MG in NS 500 ML IV SCH (14:35)
[2018-05-31] MEDS: MIRALAX PO SCH ×2 (14:45→21:04)
--- NOTE | 2018-05-31 15:02 | PROGRESS NOTE ---
DATE: 05/31/2018 INTERVAL HISTORY: The patient still with significant penile edema and pain. He has been only partially relieved by p.o. medication. Still with fevers, yesterday afternoon up to 102.5. Repeat blood cultures remain negative. REVIEW OF SYSTEMS: A 12 point review of systems negative except as per Interval History. LABORATORY DATA: WBC 19.2, hemoglobin 10.9, hematocrit 32.1, platelets 337,000. Basic metabolic panel unremarkable. IMAGING: CT abdomen and pelvis with complex fluid collection with peripheral enhancement in the urogenital triangle around the bulb of the penis, extending into the corpus spongiosum. Favored to represent abscess. Constipation. VITAL SIGNS: T-max 102.5 degrees, pulse 81, respirations 18, blood pressure 156/80, O2 saturation 100. PHYSICAL EXAMINATION: General: Mild distress, slightly diaphoretic. Vitals: As above. HEENT: Normocephalic, atraumatic. Moist mucous membranes. Neck: No cervical adenopathy. Cardiovascular: Slightly tachycardic but regular. No murmurs, rubs, or gallops. Pulmonary: Clear to auscultation bilaterally. No wheezing, rales, or rhonchi noted. Abdomen: Soft and nontender. Bowel sounds positive. Extremities: Peripheral pulses intact. No cyanosis, clubbing, or edema. Neurologic: Cranial nerves grossly intact. No focal deficits identified. Psychiatric: Normal mood and affect. Awake, alert and oriented x3. Genitourinary: Penis markedly edematous. Slightly tender, but without erythema. Skin: No new rashes or lesions identified. ASSESSMENT AND PLAN: 1. Penile swelling, likely abscess: The patient presented with penile pain and swelling. CT showing fluid collection most favored to represent abscess. Urology following and likely taking the patient back to surgery either tonight or in the morning. Infectious Disease following and has changed the patient to vancomycin and Zosyn. 2. Significant pain: Uncontrolled on current regimen. Adding IV Dilaudid to obtain better control of pain. Continue antibiotics with Zosyn. Still with fevers yesterday up to 102.5. Initial blood culture with Peptostreptococcus micros, uncertain if this represents a contaminant or not, but repeat cultures have been negative. 3. Acute kidney injury: Now resolved. 4. Syncope: Likely related to volume depletion and infection. Has resolved with IV fluids and antibiotics. 5. Deep vein thrombosis (DVT) prophylaxis: SCDs.
[2018-05-31] MEDS ORDERED: DILAUDID IV PRN (15:22)
[2018-05-31] MEDS ORDERED: DILAUDID IV ONE (15:22)
[2018-05-31] MEDS ORDERED: DIPRIVAN 1% ONE ×2 (16:03→16:37)
[2018-05-31] MEDS ORDERED: XYLOCAINE-MPF 2% ONE (16:55)
[2018-05-31] MEDS ORDERED: ZOFRAN ONE (16:55)
[2018-05-31] MEDS ORDERED: DECADRON ONE (16:55)
[2018-05-31] MEDS ORDERED: DEMEROL ONE (18:06)
[2018-05-31] MEDS ORDERED: LEVSIN-SL SL PRN (19:11)
[2018-05-31] MEDS: LR 1,000 ML IV SCH (20:47)
[2018-05-31] MEDS: FLONASE NAS SCH ×2 (20:48→20:51)
[2018-05-31] MEDS: PERIDEX MT SCH (20:48)
[2018-06-01] MEDS: VANCOMYCIN 2,000 MG in NS 500 ML IV SCH ×2 (02:09→14:27)
[2018-06-01] MEDS: ZOSYN 3.375 GM in NS 50 ML IV SCH ×4 (05:02→21:37)
[2018-06-01 07:46] LABS: AGAP 9; BUN 12 mg/dL (8-22); CALCIUM 7.6 mg/dL (8.8-10.2); CHLORIDE 104 mmol/L (98-107); COSMO 277; CREATININE 1.1 mg/dL (0.7-1.2); ESTIMATED GFR > 60; GLUCOSE 132 mg/dL (70-104); POTASSIUM 4.2 mmol/L (3.5-5.1); SODIUM 138 mmol/L (136-145); TCO2 25 mmol/L (25-35)
[2018-06-01 07:53] LABS: BASO# 0.03 X1000 (0.0-0.2); BASO% 0.1 % (0.0-0.8); HEMATOCRIT 31.8 % (42.0-52.0); HEMOGLOBIN 10.7 g/dL (14.0-18.0); IMM GRAN# 0.14 X1000 (0.0-0.04); IMM GRAN% 0.5 % (0.0-0.5); LYMPH# 1.28 X1000 (1.2-3.4); LYMPH% 4.4 % (20.5-51.1); MCH 30.7 PG (27-31); MCHC 33.6 g/dL (33-37); MCV 91.4 FL (81-99); MONO# 0.75 X1000 (0.11-0.59); MONO% 2.6 % (1.7-9.3); NEUT# 26.96 X1000 (1.4-6.5); NEUT% 92.4 % (42.2-75.2); PLT 360 X1000 (130-400); RBC 3.48 XMIL (4.7-6.1); RDW 13.2 % (11.5-14.5); WBC 29.16 X1000 (4.8-10.8)
[2018-06-01 08:13] LABS: BANDS 5 % (0-1); LYMPHS 5 % (21-51); MONO 2 % (1-9); SEGS 87 % (42-75)
--- NOTE | 2018-06-01 08:59 | Diag Imaging Result Doc PS360 ---
FLUROSCOPY CYSTO - 05/31/2018 INDICATION: URETHERAL STRICTURE, DVIU PERFORMED/WIRE USED TO GET TO BLADDER TECHNIQUE: Fluoroscopy and two views of the abdomen. The exam was performed by the patient's urologist. COMPARISON: CT from 05/31/2018 FINDINGS: Only two images were obtained. On one image, there is a wire folded over the pelvis. IMPRESSION: As above. Electronically signed by Gagan Walsh 06/01/2018 8:57 AM
--- NOTE | 2018-06-01 09:00 | OPERATIVE NOTE ---
PROCEDURE DATE: 05/31/2018 PREOPERATIVE DIAGNOSES: 1. Urinary retention. 2. Urethral mass. 3. Elevated white blood cell count. POSTOPERATIVE DIAGNOSES: 1. Urinary retention. 2. Urethral mass. 3. Elevated white blood cell count. PROCEDURE PERFORMED: 1. Cystoscopy with urethral biopsy. 2. Difficult urethral catheter placement. SURGEON: Neville Santizo MD. CASTABLES WORKER: None. COMPLICATIONS: None. BLOOD LOSS: 2 mL. SPECIMENS REMOVED: Urethral biopsy. DRAINS: A 20-Argentine [place] tip catheter. OPERATIVE FINDINGS: The patient had significant scrotal and penile edema that appeared to be restricted to the subcutaneous tissues with no evidence of any skin lesions externally. The cystourethroscope was inserted through the urethra which was normal caliber for the first several centimeters of the distal urethra. However, an obstructing lesion was seen just proximal to this. I was unable to pass the scope initially or a wire. Ultimately, I found the plane and was able to pass the cystourethroscope through the urethra which had a significant amount of abnormal- appearing tissue surrounding all sides of the urethra that appeared to be completely abnormal with no evidence of normal urethral tissue until I entered into the bulbar urethra, which appeared to be normal. The patient's bladder neck with high- riding with a very prominent verumontanum. On emptying the bladder the entirety of the bladder was inspected with no evidence of any mucosal abnormalities. Both ureteral orifices were visualized with efflux of orangish urine likely related to his Pyridium. I was able to take multiple biopsies and removed a large portion of the irregular tissue within the urethra. However, uncertain of the true etiology as it did not appear to be significant infection, but rather the possibility of urethral stricture disease versus urethral malignancy. INDICATION FOR PROCEDURE: Mr. Pereira is a 42-year-old who presented as a consult yesterday for scrotal and penile edema. The patient had attempted placement of a urethral catheter on presentation to the hospital on 05/24/2017. However, there was significant difficulty with placement of the catheter per report, and ultimately a catheter was able to placed on the floor. This was removed due to hematuria and the patient started having significant penile edema. Urology was consulted yesterday related to this. The patient has been having low-grade temperatures as well as having worsening elevated white blood cell count today. The CT of the abdomen and pelvis was performed which showed an enhancing urethral mass measuring approximately 3 x 5 cm with the appearance of possible abscess versus possible primary urethral mass. Due to its appearance, it was recommended he undergo a cystoscopy with urethral catheter placement and possible unroofing of urethral abscess. Risks, benefits and alternatives to surgical procedure were discussed with patient, and patient elected to proceed. DESCRIPTION OF PROCEDURE: After informed consent was obtained, the patient brought to the operating room, placed on the operative table in supine position. He underwent general anesthesia and received prior antibiotic orders. His perineum was examined with firm area in the perineum. Patient has significant scrotal and perineal edema. Following this, he was placed into a dorsal lithotomy position, was prepped and draped in usual sterile fashion. A preop time-out was performed with all parties in agreement, including anesthesia, surgical, and nursing staff. Following this, a 21-Argentine cystourethroscope was inserted through the urethra. On entering into the penile urethra, there was a significant amount of obstructing tissue present. This was extremely irregular and uncertain of the etiology. I attempted to try to place the cystourethroscope through this area but there was a significant amount of obstruction. I was able to try to pass a Sensor wire through the scope; however, no obvious plane was seen. Ultimately, a plane was seen dorsal on the urethra and was able to pass past the obstructing lesion and further along the urethra. However, the urethra continued to have a similar type appearance. There was slight broadening within the distal bulbar urethra with a very irregular, erythematous, inflamed area present until its point, at which point there was dilation of the posterior bulbar urethra and it appeared to be more like normal mucosa. Entered through the membranous urethra and into the prostate, which had an appearance of a very prominent verumontanum and a very high bladder neck. I was able to enter into the bladder. The entirety of the bladder was inspected with minimal sediment. Both ureteral orifices were visualized with efflux of clear yellow urine. There was an orangish tinge to the bladder, likely related to prior Pyridium use. No mucosal abnormalities were seen within the bladder itself, no tumors, no diverticulum or cellules. The cystourethroscope was then slowly withdrawn and a wire was passed through the scope which allowed for coiling within the bladder itself. The urethroscope was completely removed and reinserted, and multiple biopsies were taken throughout this irregular area of the urethra. The cystourethroscope was able to pass easily through the urethra and into the bladder. No obvious abscess was seen. No other obvious firm masses within the urethra. I performed a perineal exam which showed no evidence of any obvious fluctuance within the urethra or perineum. The patient did have significant scrotal and penile edema, which has been relatively unchanged since first evaluated yesterday. Uncertain of the etiology of the inflamed area within his urethra, whether this was stricture disease versus a urethral malignancy. I was able to ultimately pass a 20F [place] tip catheter over the Sensor wire which passed easily into the bladder and drained clear irrigant. This was inflated with 10 mL of sterile water and placed to gravity drainage. The catheter was then attached to his left lower extremity with a StatLock. The patient was awoken and was taken to recovery in stable condition. He will continue with the indwelling catheter for at least 7 to 10 days and likely will perform a pericatheter rug prior to removal. We will follow up his urethral biopsy. We will continue to monitor. Please call with questions or concerns. cc: Neville Santizo MD MTDD
[2018-06-01] MEDS: NS 1,000 ML IV SCH (09:14)
[2018-06-01] MEDS: PERIDEX MT SCH ×2 (09:16→21:38)
[2018-06-01] MEDS: MIRALAX PO SCH ×2 (09:19→21:38)
[2018-06-01] MEDS: FLONASE NAS SCH ×2 (09:20→21:37)
--- NOTE | 2018-06-01 10:00 | PROGRESS NOTE ---
DATE: 06/01/2018 SUBJECTIVE: Postop day 1 from cystoscopy with urethral biopsies and urethral catheter placement. The patient seems to be doing better overnight. He denies any pain this morning. His catheter has been draining well. The patient went to the operating room yesterday for cystoscopy and attempted transurethral incision of possible urethral abscess. No obvious abscess was visualized. There was a significant amount of inflammatory tissue present within the urethra. I took multiple biopsies of this. The patient's catheter has been draining well without any pain. He denies any bladder spasms. He continues to have some penile and scrotal edema, but it does appear to be slightly improved from yesterday. OBJECTIVE: Vital signs: Temperature 97.8 degrees, heart rate 60, blood pressure 140/91, oxygen saturation 100%. General: No acute distress. Resting comfortably in bed. Respiratory: Good respiratory effort without any audible wheezing or rales. Cardiovascular: No evidence of lower extremity edema. Abdomen: Soft, nontender, nondistended. Genitourinary: Urethral catheter in place with clear yellow urine. Continued penile edema, which does appear to be slightly improved from yesterday. No evidence of any erythema, crepitus, or warmth. Scrotal exam also shows stable appearance with scrotal edema. No palpable masses. No erythema, warmth, or crepitus present. On exam of the perineum, no palpable masses are felt. LABORATORY DATA: Sodium 138, potassium 4.2, chloride 104, bicarb 25, BUN 12, creatinine 1.1, glucose 132. WBC 29k. ASSESSMENT AND PLAN: Mr. Pereira is a 42-year-old who initially presented as a consult for scrotal and penile edema. CT abdomen and pelvis performed yesterday showed an enhancing 5 x 3.5 cm mass within the urethra with concern for possible abscess. The patient was taken to the operating room yesterday for cystoscopy and unroofing of this abscess. No obvious abscess was seen on cystoscopy, but there was significant amount of debris present within the urethra, which I removed multiple biopsies. Even after this, his urethra did not appear to be normal. Uncertain if this is related to chronic urethral stricture disease versus possible urethral malignancy. I was able to enter into the bladder and inspect the entirety of the bladder with no obvious mucosal abnormalities present within the bladder itself. The patient overall seems to be doing better. He remains afebrile. Vital signs are all stable. His hematology labs showed elevated WBC of 29k, with him being afebrile with stable vital signs for the past 24 hours. Will continue to monitor. Will continue on IV antibiotics and tailor to culture data. His blood cultures from yesterday have shown no growth. Previous urine cultures had shown no growth. The patient's only positive blood culture was from 05/24/2018, which showed Peptostreptococcus micros. Will continue to monitor. Would continue with indwelling catheter for at least 7 to 10 days and likely would obtain a pericatheter retrograde urethrogram prior to removal of his urethral catheter. Please call with questions or concerns. cc: Neville Santizo MD MTDD
--- NOTE | 2018-06-01 12:15 | PROGRESS NOTE ---
DATE: 06/01/2018 SUBJECTIVE: Patient reports no fever during the last 48 hours. Mild pain around the surgical area, much better controlled. OBJECTIVE: Vital Signs: Temperature 98.7 degrees, heart rate 60, respiratory rate 16, blood pressure 140/91, O2 saturation 100% on room air. General examination: This is a 42-year-old male, lying in bed, in no acute distress. Cardiovascular: S1, S2 heard. No murmurs, gallops, or rubs. Regular rate and rhythm. Respiratory: Clear bilaterally to auscultation. No work of breathing or using accessory muscles. Abdomen: Soft, nontender to palpation. Bowel sounds present. No organomegaly. Genitourinary: Mcdonald catheter in place with clear yellow urine. Penis covered by dressing. Extremities: No clubbing, cyanosis, or edema. Peripheral pulses present in both legs. Neurological: Patient alert, oriented x3. Moves 4 extremities. LABORATORY DATA: White cell count 29.63, hemoglobin 10.7, hematocrit 31.8, platelets are 360. Normal BMP. ASSESSMENT AND PLAN: 1. Scrotal and penile edema. The patient had been taken to the OR yesterday, and he underwent cystoscopy. Report said significant amount of debris present in the urethra. Not sure about chronic urethral stricture versus possible urethral malignancy. In any case, clinically this patient is feeling better, less pain around that area, and the patient is not developing any fever in the last 48 hours. The patient is on vancomycin and Zosyn. Infectious Disease is following this patient. We will follow recommendations. 2. Acute kidney injury, resolved. 3. Peptostreptococcus bacteremia. Patient had been placed initially on ampicillin, but now the patient is on vancomycin and Zosyn. Blood cultures had been drawn 2 days ago, and those are negative so far after 48 hours. We will continue to monitor. cc: Randolph Hi MD
--- NOTE | 2018-06-01 17:48 | INFECTIOUS DISEASE PROGRESS NO ---
DATE: 06/01/2018 PRESENT ILLNESS: Mr. Pereira has a Peptostreptococcal bacteremia which most likely originated from his genitourinary system. He is status post cystoscopy with urethral biopsy of a noted urethral mass, done by Dr. Santizo yesterday. There is leukocytosis as well. MEDICATIONS: Dr. Santizo has changed him to IV vancomycin per pharmacy dosing and Zosyn 3.375 g IV every 6 hours. We agree with this change in light of the new issues. PHYSICAL EXAMINATION: Vital Signs: Temperature is 98.3 degrees, pulse rate 63 , respiratory rate 18, blood pressure 141/88, O2 saturation is 100% on room air. General: This is a fairly healthy- appearing, middle-aged gentleman. He is lying in bed currently, in no acute distress. HEENT: Atraumatic, normocephalic. Oral mucous membranes are pink and moist. Conjunctivae are pink. Neck: Supple. Trachea is midline. Cardiovascular: Heart rate is regular. Radial and pedal pulses are +2 bilaterally. No edema noted. Respiratory: Lung sounds are clear to auscultation, mildly diminished in the bases. Abdomen: Soft, round, and nontender. Bowel sounds are active. : There is a Mcdonald catheter draining to bedside bag. There is some noted edema to the penis and scrotum which has improved somewhat. Urine has a good amount of sediment as noted in the tubing of the bedside bag. Neurologic: The patient is awake, alert, and oriented. He is able to ambulate without assistance. LABORATORY AND X-RAY: Today his white count is up to 29.16, hemoglobin 10.7, platelet count 360,000. Creatinine is 1.1. Estimated GFR is greater than 60. A check for C difficile toxin and antigen were both negative. Original blood cultures grew Peptostreptococcus micros. The most recent blood cultures have shown no growth after 48 hours. Two separate urine cultures have shown no growth. Pathology for urethral biopsy is pending. No imaging reports today. However, yesterday the abdomen and pelvis CT did show complex fluid collection to the urogenital triangle round the bulb of the penis that extends to the corpus spongiosum, with a possible abscess. ASSESSMENT AND PLAN: Mr. Pereira has a Peptostreptococcus bacteremia which appears to have a genitourinary origin. For now we agree with the treatment of vancomycin and Zosyn as ordered by Dr. Santizo. He has had a renal insufficiency recently, so we will have to watch his daily creatinine and GFR very closely. These plans have been discussed with and recommended by Dr. Terry. COMORBIDITIES: For Mr. Pereira include previous renal insufficiency during this hospitalization and cigarette smoking. Dictated by AGATHA Mares for Mauricio Terry MD This chart was documented by, AGATHA Mares and accurately reflects the services performed, treatment plan and medical decisions as attested by the providers signature Mauricio Terry MD. cc: Mauricio Terry MD [facility]
[2018-06-02] MEDS: VANCOMYCIN 2,000 MG in NS 500 ML IV SCH (01:43)
[2018-06-02] MEDS: NS 1,000 ML IV SCH (01:43)
[2018-06-02] MEDS: ZOSYN 3.375 GM in NS 50 ML IV SCH ×4 (04:15→22:41)
[2018-06-02 06:36] LABS: BASO# 0.05 X1000 (0.0-0.2); BASO% 0.2 % (0.0-0.8); EOS# 0.07 X1000 (0.0-0.7); EOS% 0.3 % (0.0-10.0); HEMATOCRIT 31.1 % (42.0-52.0); HEMOGLOBIN 10.3 g/dL (14.0-18.0); IMM GRAN# 0.08 X1000 (0.0-0.04); IMM GRAN% 0.4 % (0.0-0.5); LYMPH# 2.77 X1000 (1.2-3.4); LYMPH% 13.2 % (20.5-51.1); MCH 30.2 PG (27-31); MCHC 33.1 g/dL (33-37); MCV 91.2 FL (81-99); MONO# 0.92 X1000 (0.11-0.59); MONO% 4.4 % (1.7-9.3); MPV 8.9 FL (7.4-10.4); NEUT# 17.08 X1000 (1.4-6.5); NEUT% 81.5 % (42.2-75.2); PLT 402 X1000 (130-400); RBC 3.41 XMIL (4.7-6.1); RDW 13.3 % (11.5-14.5); WBC 20.97 X1000 (4.8-10.8)
[2018-06-02 07:04] LABS: AGAP 9; BUN 10 mg/dL (8-22); CALCIUM 8.2 mg/dL (8.8-10.2); CHLORIDE 108 mmol/L (98-107); COSMO 281; CREATININE 0.9 mg/dL (0.7-1.2); ESTIMATED GFR > 60; GLUCOSE 109 mg/dL (70-104); MAGNESIUM 2.1 mg/dL (1.5-2.7); POTASSIUM 3.4 mmol/L (3.5-5.1); SODIUM 141 mmol/L (136-145); TCO2 24 mmol/L (25-35)
[2018-06-02 07:28] LABS: LYMPHS 12 % (21-51); MONO 4 % (1-9); SEGS 80 % (42-75)
[2018-06-02] MEDS: MIRALAX PO SCH (07:59)
[2018-06-02] MEDS: LR 1,000 ML IV SCH ×2 (07:59→17:28)
[2018-06-02] MEDS: PERIDEX MT SCH ×2 (07:59→22:40)
[2018-06-02] MEDS: FLONASE NAS SCH (08:00)
--- NOTE | 2018-06-02 13:08 | PROGRESS NOTE ---
DATE: 06/02/2018 SUBJECTIVE: The patient remains afebrile. He feels that his scrotal swelling and penile swelling have improved. He denies significant pain. His catheter has been draining well with clear yellow urine. All of his vital signs have been stable. PHYSICAL EXAMINATION: Vital Signs: Temperature 98.8 degrees, heart rate 50, oxygen saturation 100%, blood pressure 144/92. General: No acute distress. Resting comfortably in bed. Respiratory: Good respiratory effort without audible wheezing or rales. Abdomen: Soft, nontender, nondistended. Examination: Persistent penile and scrotal edema. This does appear to be decreasing in size. His scrotum appears to be returning to its normal size. However, his penis remains slightly edematous but improved from yesterday. Urethral catheter is in place with clear yellow urine. No evidence of crepitus, changes in skin, erythema, or warmth. LABORATORY DATA: White blood cell count 20.9, hemoglobin 10.3, hematocrit 31.1 , platelets of 402,000. Sodium 141, potassium 3.4, chloride 108, bicarb 24, BUN 10, creatinine 0.9, glucose 109. ASSESSMENT AND PLAN: Mr. Pereira is a 42-year-old with hypertension, who presents for evaluation of urethral abscess versus urethral mass. The patient was taken to the operating room on Thursday and underwent cystoscopy, urethral biopsies, and placement of a urethral catheter. I talked to Dr. Cota today and pathology shows no evidence of malignancy. Has had decreasing WBC at 20K from 29K yesterday. The patient remains on antibiotics. He has been afebrile for nearly [address] talking with [address] Terry, it was recommend the patient be discharged with Zosyn. We will transition him to a higher dose of Zosyn every 8 hours. The patient be followed up in Urology Clinic as well as with infectious disease. Continue with indwelling catheter. Will likely need pericatheter retrograde urethrogram prior to catheter removal. cc: Neville Santizo MD [facility]
--- NOTE | 2018-06-02 13:24 | INFECTIOUS DISEASE PROGRESS NO ---
DATE: 06/02/2018 PRESENT ILLNESS: The patient has peptostreptococcal bacteremia which most likely originated from his genitourinary system. He has a Mcdonald catheter that has been put in by Dr. Santizo. The patient's penis still remains very swollen but it might be getting better. MEDICATIONS: Currently the patient is on Zosyn and vancomycin. PHYSICAL EXAMINATION: Vital Signs: Temperature is 98.6 degrees, pulse 50, respirations 18, blood pressure 144/92. General: This is a fairly healthy-appearing, middle-aged male. He is in no acute distress. Head, eyes, ears, nose, and throat: He can hear my spoken words and see near objects. He does not have any white patches on his tongue. Lungs: Clear to auscultation. Cardiovascular: Heart rate is regular. Abdomen: Abdomen is soft and nontender. Genitalia: The patient's penis remains swollen. He has a Mcdonald catheter in place. LAB AND X-RAY: [place] [address], hemoglobin 10.3, and platelet count 402,000. Creatinine is 0.9. GFR is greater than 60. There is no new radiographic study. ASSESSMENT AND PLAN: Patient has a peptostreptococcal bacteremia and a swollen penis, possibly due to infection. The plan is to send the patient home on home IV antibiotics. I have ordered that a PICC be placed. I have ordered for the patient to have at home Zosyn 4.5 g IV every 8 hours for 12 days. I put in an order for the patient to have an appointment at my office in 2 weeks. COMORBIDITIES: The patient has previously had renal insufficiency. The patient also is a cigarette smoker. His renal function has recovered very well. cc: Mauricio Terry MD
[2018-06-02 13:42] LABS: INR 0.99; PROTIME 13.9 Seconds (11.0-16.0)
--- NOTE | 2018-06-02 19:58 | DISCHARGE SUMMARY ---
ADMISSION DATE: 05/24/2018 DISCHARGE DATE: 06/02/2018 CONSULTATIONS: 1. Dr. Mauricio Terry with Infectious Disease. 2. Dr. Neville Santizo with Urology. PERTINENT PROCEDURES: 1. Abdomen and pelvis CT showed complex fluid collection with peripheral enhancement of the urogenital triangle around the bulb of the penis, that extends into the corpus spongiosum as described. Abscess could not be excluded. Trace right pleural effusion with mild body wall edema, possible small rectal fecal impaction. 2. Scrotum ultrasound. Apparent epididymitis on the right. No evidence of torsion. 3. Cystoscopy with urethral biopsy. Difficult urethral catheter placement performed by Dr. Santizo. DISCHARGE DIAGNOSES: 1. Peptostreptococcus bacteremia which appears to have a origin. The patient will continue treatment with antibiotics per Dr. Mauricio Terry with Infectious Disease. 2. Urinary retention, urethral mass. The patient underwent a cystoscopy with urethral biopsy with Dr. Santizo on 05/31/2018. They did not see an abscess, but there were multiple biopsies taken. Again, he will continue on antibiotics per Infectious Disease as well as continue with his indwelling catheter for at least 7 to 10 days and will likely obtain a pericatheter retrograde urethrogram prior to removal of his urethral catheter. 3. Scrotal and penile edema. See #2. 4. Acute kidney injury, resolved. HOSPITAL COURSE: Briefly, Mr. Pereira is a 42-year-old gentleman with a history of hypertension and myocardial infarction who presented to [facility] on 05/24/2018 and was admitted after he had a loss of consciousness at home. He was also found to have an acute kidney injury with elevated creatinine of 2.1 and elevated postvoid residual. Catheter was attempted and was not able to be placed, but since that time the patient had some hematuria when he urinates as well as significant penile swelling. Prior to all this there was no penile swelling, as well as some scrotal edema, tenderness to palpation and pain both in his penis and scrotum. There were some complaints of dysuria. Prior to this, he did have some urgency and frequency to urinate at home for many months, but it was most prominent at night. He was brought over from [facility] to [facility] for evaluation by Urology, as well as Infectious Disease, because he was found to have a bacteremia with Peptostreptococcus. He was continued on IV vancomycin and Zosyn under the direction of Dr. Terry. He did undergo a cystoscopy with urethral biopsy and difficult urethral catheter placement with Dr. Santizo. He will still need to continue on antibiotics per Infectious Disease and keep his indwelling Mcdonald catheter for 7 to 10 days and will go see Urology for removal and at that time they may do a pericatheter retrograde urethrogram prior to the removal of his urethral catheter. He is stable and ready for discharge home today. VITAL SIGNS: At time of discharge, temperature is 98.6, heart rate 50, respirations 18, blood pressure 144/92. O2 is 96% on room air. DISCHARGE DIET: Regular. DISCHARGE MEDICATIONS: IV antibiotics per Infectious Disease. Home medications per Dr. Sharp. Dictated by AGATHA Brush for Randolph Hi MD Addendum: Patient seen and examined by myself. Agree with AGATHA note. It reflects my assessment and plan. Patient is being discharged in stable condition. Will be seen by Dr. Terry in the office in [address] Santizo in one week. He will be discharged with Mcdonald catheter. cc: MD Neville Sofia MD Leroy F. Harris, MD MTDD
[2018-06-03] MEDS: LR 1,000 ML IV SCH ×2 (04:23→08:56)
[2018-06-03] MEDS: ZOSYN 3.375 GM in NS 50 ML IV SCH ×3 (04:24→11:14)
[2018-06-03] MEDS: FLONASE NAS SCH ×3 (06:50→08:56)
[2018-06-03] MEDS: MIRALAX PO SCH ×2 (06:51→08:56)
--- NOTE | 2018-06-03 07:16 | PROGRESS NOTE ---
DATE: 06/03/2018 SUBJECTIVE: No acute events overnight. The patient remains afebrile. Vital signs are stable. His scrotal and penile edema seems to be improving. His catheter is draining well with clear- yellow urine. The patient denies any scrotal pain today. OBJECTIVE: Vital Signs: Temperature 98.8 degrees, heart rate 57, blood pressure 144/78, oxygen saturation 99% on room air. General: No acute distress. Resting comfortably in bed. Respiratory: Good respiratory effort without audible wheezing or rales. Cardiovascular: No evidence of lower extremity edema. Abdomen: No abdominal distention or tenderness to palpation. No palpable hepatosplenomegaly or masses. : No suprapubic tenderness. Urethral catheter in place with clear yellow urine. Penile edema has improved since yesterday. Scrotal edema continues to improve as well. No evidence of any crepitus, erythema, or warmth present. ASSESSMENT AND PLAN: Mr. Pereira is a 42-year-old with hypertension, who presents for evaluation of urethral mass and concern for infection. The patient underwent cystoscopy with urethral biopsies on Thursday, which showed inflammatory tissue with no evidence of any malignancy. The patient's pain has remained well controlled since then. He remains afebrile with stable vital signs. His infection count slowly improved. It was 29 on Thursday, and 20 yesterday. The patient clinically is improving. The patient has been followed by Infectious Disease, who recommends placement of a PICC line and discharging with Zosyn. The plan is for a PICC line today, and then hopefully discharge later today. Will need pericatheter RUG prior to removal of catheter. Will follow up in clinic next week with Urology, and in 2 weeks with Infectious Disease. cc: MD BRET Middleton
[2018-06-03 07:40] LABS: AGAP 11; BUN 7 mg/dL (8-22); CALCIUM 8.6 mg/dL (8.8-10.2); CHLORIDE 104 mmol/L (98-107); COSMO 276; ESTIMATED GFR > 60; GLUCOSE 101 mg/dL (70-104); MAGNESIUM 1.9 mg/dL (1.5-2.7); POTASSIUM 3.5 mmol/L (3.5-5.1); SODIUM 139 mmol/L (136-145); TCO2 24 mmol/L (25-35)
[2018-06-03] MEDS: PERIDEX MT SCH (08:54)
[2018-06-03 10:30] LABS: BASO# 0.08 X1000 (0.0-0.2); BASO% 0.6 % (0.0-0.8); EOS# 0.31 X1000 (0.0-0.7); EOS% 2.3 % (0.0-10.0); HEMATOCRIT 32.1 % (42.0-52.0); HEMOGLOBIN 10.5 g/dL (14.0-18.0); IMM GRAN# 0.06 X1000 (0.0-0.04); IMM GRAN% 0.4 % (0.0-0.5); LYMPH# 2.24 X1000 (1.2-3.4); LYMPH% 16.4 % (20.5-51.1); MCH 30.2 PG (27-31); MCHC 32.7 g/dL (33-37); MCV 92.2 FL (81-99); MONO# 0.93 X1000 (0.11-0.59); MONO% 6.8 % (1.7-9.3); MPV 9.1 FL (7.4-10.4); NEUT# 10.05 X1000 (1.4-6.5); NEUT% 73.5 % (42.2-75.2); PLT 444 X1000 (130-400); RBC 3.48 XMIL (4.7-6.1); RDW 13.2 % (11.5-14.5); WBC 13.67 X1000 (4.8-10.8)
[2018-06-03 10:54] LABS: BANDS 2 % (0-1); LYMPHS 16 % (21-51); SEGS 82 % (42-75)
[2018-06-03] MEDS ORDERED: NS 250 ML ONE (11:16)
[2018-06-03 14:03] VITALS: BP 138/81
--- NOTE | 2018-06-03 23:18 | DISCHARGE SUMMARY ---
ADMISSION DATE: 05/24/2018 DISCHARGE DATE: 06/03/2018 ADDENDUM DISCHARGE CONDITION: The patient is going to be discharged in stable condition on IV antibiotics. DISCHARGE MEDICATIONS: The patient is going to have the following medications. 1. Zosyn 4.75 g IV 8 hours for 12 days. 2. Percocet 5 mg, 1 tablet p.o. every 4 hours as needed for pain. 3. Pyridium 100 mg p.o. 2 times per day as needed for burning on urination. 4. Dulcolax as needed for constipation. DISCHARGE PLAN: 1. Patient is going to be followed by Dr. Santizo in the office. The patient was supposed to have a pericatheter RUG prior to removal of the catheter. The patient already got an appointment to have that exam done before follow up with Urology. 2. The patient is going to be seen by Dr. Mauricio Terry in a couple weeks. cc: Randolph Hi MD
== END 2018-06-03 15:26 | disposition home or self-care (01) | DRG 871 ==
LOC: P.MEDSURG 07:19 → P.ED 07:19 → OBSVTOIN 07:20 → SUATTDRO 07:20 → P.MEDSURG 14:50 → 4N 05-30 11:24
PROVIDERS: ATTEND Internal Medicine
CPT/HCPCS: 36415; 36569; 51701; 71010; 71045; 74178; 76000; 76870; 80048; 80053; 80104; 80202; 80301; 80305; 80307; 80320; 81001; 82055; 82550; 82553; 82948; 83605; 83735; 84484; 85025; 85027; 85610; 85730; 87040; 87076; 87077; 87088; 87275; 87276; 87324; 87449; 87804; 88305; 88313; 93005; 93306; 94761; 94799; 96361; 96365; 99285; A9270; G0431; G0434; G0477; G0480; G6040; J0290; J0696; J1100; J1170; J1335; J1650; J1885; J2175; J2405; J2543; J3370; J7030; J7040; J7050; J7120; P9612; Q9967; XXXXX